=== PATIENT | male | born 1940 | race Caucasian/White ===

== ENCOUNTER → 2018-11-20 | Outpatient (CLI) | payer MEDICARE, OTHER ==
[~2018-11-20] MED LIST: ALLOPURINOL 10100 M1 PO; ASPIR 8181 MG PO; EFFIENT10 MG PO; GLUCOPHAGE1000 MG PO; GLUCOTROL5 MG PO; LANTUS100 UNIT/M SUBQ; LASIX 40 MG TAB40 M2 PO; LEVOXYL112 MCG PO; LIPITOR 20 MG T20 M1 PO; LISINOPRIL20 MG PO; LOPRESSOR25 PO; NEURONTIN600 MG PO; NITROGLYCERIN0.4 MG SUBLING; POTASSIUM20 PO; ZOCOR20 MG PO
== END ==
LOC: M.RAD 11:22
DX: R07.81 Pleurodynia (principal); J98.11 Atelectasis; W19.XXXA Unspecified fall, initial encounter

== ENCOUNTER 2021-01-12 09:02 | Observation (INO) | payer MEDICARE, OTHER ==
[2021-01-12] VITALS (12 sets, daily range): BP systolic 103–158; BP diastolic 52–84
[~2021-01-12] VITALS: Ht 177.8 cm; Wt 132.4 kg
--- NOTE | ~2021-01-12 | H ---
[address] [address] HISTORY AND PHYSICAL Name: YAEL HUSSEIN JR Room: [address] Jeanne Stewart#: [id number] Admission: 01/12/21 Attend Phys: Zak Jeffries MD, Discharge: 01/13/21 Date of : 42 Report #: [id number] THIS REPORT FOR: cc: Maxine Lopez MD, Katrina MD [facility],Medical Records Staff ~ Please refer to the History and Physical performed in the physician's office. By: [id number] Records Staff [facility] /[place]
[2021-01-12 10:06] LABS: HEMATOCRIT 39.1 % (42.0-52.0); HEMOGLOBIN 12.7 gm/dL (14.0-18.0); MCH 32.4 pg (26.0-34.0); MCHC 32.5 g/dL (28.0-37.0); MCV 99.5 fL (80.0-100.0); MPV 8.7 fl. (7.2-11.1); RBC 3.93 mil/uL (4.50-6.00)
[2021-01-12 10:14] LABS: ANION GAP 6 mmol/L (7-16); BUN 25 mg/dL (7-18); CHLORIDE 104 mmol/L (98-107); CO2 32 mmol/L (21-32); CREATININE 1.7 mg/dL (0.6-1.3); GLUCOSE 84 mg/dL (70-99); SODIUM 142 mmol/L (136-145)
[2021-01-12 10:19] LABS: ALBUMIN 3.3 g/dL (3.4-5.0); ALKALINE PHOSPHATASE 96 U/L (46-116); CHOLESTEROL 156 mg/dL (<200); HDL CHOLESTEROL 47 mg/dL (>40); LDL CHOLESTEROL 88 mg/dL (<100); POTASSIUM 5.3 mmol/L (3.5-5.1); SERUM ASSESSMENT Clear; SGOT 26 U/L (15-37); SGPT 17 U/L (30-65); TC:HDL 3.3 Ratio (Not establshd); TOTAL BILIRUBIN 0.7 mg/dL (<0.1-1.0); TOTAL PROTEIN 6.8 g/dL (6.4-8.2); TRIGLYCERIDE 107 mg/dL (<150); VLDL 21 mg/dL (<40)
[2021-01-12 10:27] LABS: APTT 27.7 Seconds (25.0-31.3); PROTIME 10.5 Seconds (9.20-11.50)
[2021-01-12] MEDS ORDERED: ELIQUIS2.5 MG PO (10:34)
[2021-01-12] MEDS ORDERED: PLAVIX 75 MG TA75 MG PO (10:36)
[2021-01-12] MEDS ORDERED: METFORMIN HCL500 M3 PO (10:40)
[2021-01-12] MEDS ORDERED: IMDUR 30 MG TAB30 M1 PO (10:43)
--- NOTE | 2021-01-12 11:49 | EKG ---
[place] [address] ELECTROCARDIOGRAM REPORT Name: YAEL HUSSEIN JR Room: [facility]#: [id number] Admission: 01/12/21 Attend Phys: Trevor Meredith Discharge: Date of : 42 Date of Service: 01/12/21 1053 Report #: [id number] THIS REPORT FOR: //name// [facility] Test Date: 2021-01-12 Test Time: 10:53:05 Pat Name: YAEL HUSSEIN Department: Room: Gender: Strategy Analyst: : 1940 Requested By: Zak Jeffries Order Number: [id number] Reading MD: Bryson Dominique Measurements Intervals [place] Rate: 69 P: 21 AZ: 214 QRS: -73 QRSD: 147 T: 70 QT: 450 QTc: 482 Interpretive Statements Sinus rhythm Borderline prolonged [place] interval Right bundle branch block Inferior infarct, old Compared to ECG 09/03/2015 08:48:48 Myocardial infarct finding now present Left anterior fascicular block no longer present Electronically Signed On 01-12-2021 11:49:17 CDT by Bryson Dominique [email or web address] <ELECTRONICALLY SIGNED> By: Bryson Dominique MD, FAC 01/12/21 1149 1053 1053 Bryson Dominique MD, FAC /EPI
[2021-01-12 15:50] LABS: HEMATOCRIT 36.1 % (42.0-52.0); HEMOGLOBIN 11.8 gm/dL (14.0-18.0); MCH 32.6 pg (26.0-34.0); MCHC 32.8 g/dL (28.0-37.0); MCV 99.5 fL (80.0-100.0); MPV 8.5 fl. (7.2-11.1); RBC 3.63 mil/uL (4.50-6.00); RDW-CV 15.5 % (10.5-14.5); WBC 9.1 thou/uL (4.0-11.0)
--- NOTE | 2021-01-12 16:07 | EKG ---
[place] [address] ELECTROCARDIOGRAM REPORT Name: YAEL HUSSEIN JR Room: [address] M.R.#: [id number] Admission: 01/12/21 Attend Phys: Trevor Meredith Discharge: Date of : 42 Date of Service: 01/12/21 1344 Report #: [id number] THIS REPORT FOR: //name// [facility] Test Date: 2021-01-12 Test Time: 13:44:37 Pat Name: YAEL HUSSEIN Department: Room: [facility] Gender: M Cosmetology Instructor: : 1940 Requested By: Zak Jeffries Order Number: [id number] [place] MD: Bryson Dominique Measurements Intervals [place] Rate: 65 P: 36 ME: 195 QRS: -75 QRSD: 152 T: 70 QT: 446 QTc: 464 Interpretive Statements Sinus rhythm Right bundle branch block inferior infarct, old Probable anterolateral infarct, age indeterm Compared to ECG 01/12/2021 10:53:05 No significant changes Electronically Signed On 01-12-2021 16:07:10 CDT by Bryson Dominique [email or web address] <ELECTRONICALLY SIGNED> By: Bryson Dominique MD, FACC 01/12/21 1607 1344 1344 Bryson Dominique MD, FAC /EPI
--- NOTE | 2021-01-12 19:03 | NUR ---
1805-hutton cath dcd as instructed by after 6 hrs of laying flat.tol. humphries.
[2021-01-13 03:45] VITALS: BP 115/55
[2021-01-13 04:50] LABS: HEMOGLOBIN 11.8 gm/dL (14.0-18.0); MCH 33.3 pg (26.0-34.0); MCHC 33.6 g/dL (28.0-37.0); MCV 99.1 fL (80.0-100.0); MPV 8.9 fl. (7.2-11.1); RBC 3.53 mil/uL (4.50-6.00); RDW-CV 15.2 % (10.5-14.5); WBC 9.2 thou/uL (4.0-11.0)
[2021-01-13 05:17] LABS: ALBUMIN 2.7 g/dL (3.4-5.0); CALCIUM 8.5 mg/dL (8.5-10.1); CK-MB MASS 3.9 ng/mL (<0.5-3.6); CREATININE 1.8 mg/dL (0.6-1.3); POTASSIUM 4.7 mmol/L (3.5-5.1); TOTAL BILIRUBIN 0.7 mg/dL (<0.1-1.0); TOTAL PROTEIN 5.9 g/dL (6.4-8.2)
[2021-01-13 07:40] VITALS: BP 101/50
[2021-01-13] MEDS ORDERED: BAYER CHEWABLE81 MG PO (08:59)
--- NOTE | 2021-01-13 10:04 | CARD ---
[address] [address] CARDIAC CATH REPORT Name: YAEL HUSSEIN Room: [address] Jeanne Stewart#: [id number] Admission: 01/12/21 Attend Phys: Zak Jeffries MD, Discharge: Date of : 42 Report #: [id number] THIS REPORT FOR: cc: Maxine Lopez MD, Katrina MD Holkins, John M. MD [facility] ~ APPROVED REPORT Study performed: 01/12/2021 10:53:18 Patient Details Patient Status: Out-Patient Room #: The patient is a 80 year-old male Event Personnel Dr. Zak Jeffries MD: Wood Calker Armored Car Guard: Alvaro Castro RN Monitor: Lizabeth Kirkland RN, CVRN- Scrub: BRADEN Shannon Procedures Performed Access Right Femoral Artery; Left Heart Catheterization, HERMAN Place w/wo Plasty Single RCA, Hemostasis with Angioseal. Indication Unstable angina Risk Factors Obesity, Hypercholesterolemia, Hypertension, Diabetes Previous Procedures/Diagnoses Previous PCI, Previous [place] Admission/Lab Medications/Medications given during procedure Aspirin, Thrombin Inhibitors, Platelet Aff. Inhib. Procedure Narrative The patient was brought electively to the Cardiac Catheterization Laboratory and was prepped and draped in a sterile manner. The right femoral was infiltrated with 2% Lidocaine subcutaneous anesthesia. IV conscious sedation was used throughout procedure with appropriate monitoring and was performed in the presence of a registered nurse who was an independent trained observer other [place] [address] CARDIAC CATH REPORT Name: YAEL HUSSEIN Room: [address] Jeanne Stewart#: [id number] Admission: 01/12/21 Attend Phys: Zak Jeffries MD, Discharge: Date of : 42 Report #: [id number] performing the procedure. A 6 Fr [place] sheath was inserted into the Right Femoral Artery. Coronary angiography was performed using coronary diagnostic catheters. The right coronary system was accessed and visualized with a 6Fr JR4 catheter. The left coronary system was accessed and visualized with a 6Fr catheter. The left ventricle was accessed and visualized with a 6 Fr Angled Pigtail catheter. Left ventricular/Aortic Valve gradient assessed via catheter pullback. Pre-demployment femoral angiogram was performed . Closure device was deployed with a 6 Fr Angioseal. The patient tolerated the procedure well and there were no complications associated with the procedure. There was no hematoma. 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 The left ventricular pressure is 122/4/12 mmHg with a mean of mmHg. The left ventricular end diastolic pressure is 12 mmHg. There was no gradient across the aortic valve upon pullback. PCI Technique Lesion Anticoagulation was achieved with Angiomax. Percutaneous coronary intervention was performed on the Proximal LAD. The lesion stenosis prior to intervention was 80% with YINKA 3 flow. A EBU 3.5 Guide Catheter was used to engage the Left ostium. A BMW 190cm Interventional Guidewire was used to cross the lesion. BALLOON DILATION A Balloon catheter NC Trek RX 2.5X12 mm [place] [address] CARDIAC CATH REPORT Name: YAEL HUSSEIN JR [address] [id number] Admission: 01/12/21 Attend Phys: Zak Jeffries MD, Discharge: Date of : 42 Report #: [id number] to 18atm for 10seconds. Additional Inflation: 20atm for 8seconds. Additional Inflation: 16atm for 6seconds. STENT DEPLOYMENT A drug eluting stent Andrew RX 2.5x22 mm was inserted and inflated up to 12atm for 9seconds. Additional Inflation: 15atm for 7seconds. Additional Inflation: 16atm for 5seconds. POST STENT DEPLOYMENT BALLOON DILATION A Balloon catheter NC Trek 2.75 x 12 mm was inserted and inflated up to 16atm for 7seconds. Additional Inflation: 16atm for 7seconds. Additional Inflation: 14atm for 4seconds. Final angiography reveals 10 % stenosis with YINKA 3 flow. Conclusion 1. Significant coronary artery disease characterized by the following: A 80% calcified proximal LAD stenosis with 50% tortuous mid vessel narrowing and 70% distal narrowing B 40% narrowing the proximal portion of the nondominant circumflex C 75% narrowing the proximal and distal portions of the nondominant right coronary artery 2. Normal left-sided hemodynamic study 3. Successful PCI with deployment of a drug-eluting stent at the site of 80% calcified proximal LAD stenosis with 10% residual narrowing and YINKA-3 flow to the distal vessel Recommendations Cardiac Risk Reduction Program Aggressive Medical Therapy Medications Administered Aspirin (any) [place] [address] CARDIAC CATH REPORT Name: KEENANYAEL Room: [address] Jeanne Stewart#: [id number] Admission: 01/12/21 Attend Phys: Zak Jeffries MD, Discharge: Date of : 42 Report #: [id number] Diagnostic Cath Approved by: Zak Jeffries MD Date/Time: 01/13/2021 10:00:51 <ELECTRONICALLY SIGNED> By: Zak Jeffries MD, [facility] 01/13/21 1003 02 02Zak Jeffries MD, [facility] /INF
[2021-01-13 10:57] VITALS: BP 101/50
--- NOTE | 2021-01-13 12:13 | NUR ---
PATIENT DISCHARGED TO HOME THIS SHIFT PER DR. AGUILA ORDERS. EKG TODAY CALLED TO Viral SAL NP PRIOR TO DISCHARGE. VERBALIZES UNDERSTANDING OF PAPERWORK, NO SCRIPTS. IV SL, IV DC'D FOR DISCHARGE. PATIENT TAKEN OUT VIA WHEELCHAIR WITH ALL BELONGINGS.
--- NOTE | 2021-01-13 15:56 | EKG ---
[place] [address] ELECTROCARDIOGRAM REPORT Name: YAEL HUSSEIN JR Room: [address]#: [id number] Admission: 01/12/21 Attend Phys: Trevor Meredith Discharge: 01/13/21 Date of : 42 Date of Service: 01/13/21 1143 Report #: [id number] THIS REPORT FOR: //name// [facility] ED Test Date: 2021-01-13 Test Time: 11:43:44 Pat Name: YAEL HUSSEIN Department: Room: [facility] Gender: M Mis Specialist: CHRISTIANA : 1940 Requested By: Zak Jeffries Order Number: [id number] Reading MD: Zak Jeffries Measurements Intervals [place] Rate: 78 P: 6 ND: 188 QRS: -74 QRSD: 155 T: 63 QT: 398 QTc: 454 Interpretive Statements Sinus rhythm Ventricular premature complex Probable left atrial enlargement Right bundle branch block Inferior infarct, old Probable anterior infarct, age indeterminate Compared to ECG 01/12/2021 13:44:37 Ventricular premature complex(es) now present Myocardial infarct finding still present Electronically Signed On 01-13-2021 15:56:28 CDT by Zak Jeffries [email or web address] <ELECTRONICALLY SIGNED> By: Zak Jeffries MD, [facility] 01/13/21 1556 1143 1143 Zak Jeffries MD, [facility] /EPI
--- NOTE | 2021-01-13 16:18 | D ---
[address] [address] DISCHARGE SUMMARY Name: YAEL HUSSEIN Room: [address] Jeanne Stewart#: [id number] Admission: 01/12/21 Attend Phys: Zak Jeffries MD, Discharge: 01/13/21 Date of : 42 Report #: [id number] THIS REPORT FOR: cc: Maxine Lopez MD, Katrina MD Holkins,Zak Lobo MD [facility] ~ DATE OF DISCHARGE: 01/13/2021 The patient discharged from [facility]. FINAL DISCHARGE DIAGNOSES: 1. Unstable angina. 2. Coronary artery disease. 3. Status post recent myocardial infarction. 4. Hypertension. 5. Hyperlipidemia. 6. Diabetes mellitus. 7. Chronic kidney disease. 8. History of pulmonary emboli. PROCEDURES: 01/12/2021--left heart catheterization, selective coronary arteriography, percutaneous coronary intervention with angioplasty and stenting of the mid LAD. HOSPITAL COURSE: The patient is a pleasant 80-year-old male with complex coronary artery disease, status post multiple prior PCIs, most recently in 2016. More recently, presented with a non-STEMI to [facility] several weeks ago and was found to have an occluded small marginal. No intervention was performed. IFR was performed on the mid LAD lesion and it was 0.84, less than the threshold for hemodynamic significance. He has continued to experience some chest discomfort compatible with angina since that time. He has underlying diabetes, hypertension and hyperlipidemia. Given this data, I performed a cardiac catheterization on 01/12/2021. The first marginal continued to be occluded. There was 80% stenosis of the proximal LAD with 50 and 60% mid and distal LAD narrowings. I performed angioplasty with placement of a 2.5 x 20 mm Andrew drug-eluting stent in the mid LAD, postdilated to 2.75 mm with 10% residual narrowing and YINKA 3 flow to the distal vessel. The patient did well post-procedurally and there was good hemostasis at the right femoral site of catheterization. LABORATORY DATA: On 01/13 revealed sodium 146, potassium 4.7, BUN 28, creatinine 1.8, glucose 143. Hemoglobin 11.8, white blood cell count 9200 with 217,000 platelets. Cholesterol 156, triglycerides 107, HDL 47, [place] 88[place] [address] DISCHARGE SUMMARY Name: KEENANYAEL Room: [address] Pat#: [id number] Admission: 01/12/21 Attend Phys: Zak Jeffries MD, Discharge: 01/13/21 Date of : 42 Report #: [id number] The patient ambulated in the hallways without difficulty and there was good hemostasis at the right femoral site of catheterization. DISCHARGE MEDICATIONS: He was discharged to home on the following medications: Aspirin 81 mg daily, gabapentin 600 mg t.i.d., glipizide 5 mg daily, Lantus insulin in the p.m. on the prior dosage, furosemide 40 mg daily, allopurinol 100 mg daily, L-thyroxine 112 mcg daily, lisinopril 20 mg daily, p.r.n. sublingual nitroglycerin as needed, atorvastatin 20 mg at bedtime, apixaban 2.5 mg b.i.d. to be resumed on 01/15/2021, Plavix 75 mg daily, metformin 500 mg b.i.d. to be resumed on 01/14/2021, Imdur 30 mg daily. I asked the patient to return to see my nurse practitioner in 10 days. I will plan to see him in 4 weeks for clinical followup. Therefore, the patient is discharged home in stable condition on the aforementioned medications with followup as iterated above. <ELECTRONICALLY SIGNED> By: Zak Jeffries MD, [facility] 01/13/21 1618 0831 0851Zak Jeffries MD, FAC /nt
== END 2021-01-13 12:00 | disposition home or self-care (01) ==
LOC: M.CL 09:02 → M.TBA-CV 12:56 → M.2W 14:15
PROVIDERS: ADMIT Internal Medicine; ATTEND Internal Medicine
DX: I25.110 Atherosclerotic heart disease of native coronary artery with unstable angina pectoris (principal); Z20.822 Contact with and (suspected) exposure to COVID-19; I25.2 Old myocardial infarction; E78.5 Hyperlipidemia, unspecified; E11.22 Type 2 diabetes mellitus with diabetic chronic kidney disease; I12.9 Hypertensive chronic kidney disease with stage 1 through stage 4 chronic kidney disease, or unspecified chronic kidney disease; N18.9 Chronic kidney disease, unspecified; Z86.711 Personal history of pulmonary embolism